=== PATIENT | male | born 1980 | race Two or more races ===

== ENCOUNTER 2022-07-12 14:25 | Inpatient (IN) | payer MEDICAID ==
[~2022-07-12] VITALS: Ht 162.6 cm; Wt 75.7 kg
[~2022-07-12 14:25] MED LIST: ETOMIDATE 20 MG/10 ML VIAL ONE; LIDOCAINE-MPF 2% 5 ML VIAL ONE; METOCLOPRAMIDE HCL 10 MG/2 ML VIAL ONE; ONDANSETRON 4 MG/2 ML VIAL ONE; SUCCINYLCHOLINE CHLORIDE 200 MG/10 ML VIAL ONE
[2022-07-12] MEDS ORDERED: IV NORMAL SALINE 1000 ML BAG IV ONE (14:30)
[2022-07-12 15:00] LABS: MEAN CORPUSCULAR HEMOGLOBIN 26.4 uug (24.7-32.8)
[2022-07-12] MEDS ORDERED: PANTOPRAZOLE SODIUM IV 40 MG in IV DEXTROSE 5% 100 ML IV ONE (15:00)
[2022-07-12] MEDS ORDERED: CEFTRIAXONE 1 G in IV DEXTROSE 5% 50 ML IV ONE (15:00)
[2022-07-12] MEDS ORDERED: PANTOPRAZOLE SODIUM IV 80 MG in IV DEXTROSE 5% 500 ML IV ONE (15:00)
[2022-07-12] MEDS ORDERED: PANTOPRAZOLE SODIUM 40 MG VIAL ONE (15:08)
[2022-07-12] MEDS ORDERED: CEFTRIAXONE /D5W 50ML IVPB **ER PYXIS IV ONE (15:08)
[2022-07-12] MEDS ORDERED: OCTREOTIDE ACETATE 500 MCG/1 ML VIAL ONE (15:10)
[2022-07-12] MEDS ORDERED: OCTREOTIDE ACETATE 100 MCG/1 MLVIAL IV ONE (15:15)
[2022-07-12] MEDS ORDERED: OCTREOTIDE ACETATE 50 MCG/1 ML ML ONE (15:18)
--- NOTE | 2022-07-12 15:25 | NUR ---
Started PRBC infusion.
[2022-07-12 15:29] LABS: PLATELET COUNT (AUTO) 149 K/uL (152-348)
[2022-07-12 15:34] LABS: BILIRUBIN,DIRECT 0.9 mg/dL (0.0-0.2); BILIRUBIN,TOTAL 1.7 mg/dL (0.2-1.0); CREATININE 1.1 mg/dL (0.6-1.3); TOTAL PROTEIN, SERUM 4.3 g/dL (6.4-8.2)
[2022-07-12] MEDS ORDERED: PIPERACILLIN SODIUM/TAZOBACTAM 3.375 G in IV DEXTROSE 5% 50 ML IV ONE (15:45)
[2022-07-12] MEDS ORDERED: VANCOMYCIN IV 1,000 MG in IV DEXTROSE 5% 250 ML IV ONE (15:45)
--- NOTE | 2022-07-12 16:00 | NUR ---
Pt out of ER for CT scan.
[2022-07-12 16:33] LABS: BAND % (MANUAL) 3 % (0-10); LYMPHOCYTES % (MANUAL) 8 % (20-40); MONOCYTES % (MANUAL) 7 % (2-10); MYELOCYTES % 1 % (0-0); NEUTROPHILS % (MANUAL) 81 % (42-75)
--- NOTE | 2022-07-12 16:33 | NUR ---
PICC line insertion Celeste FONTENOT at the bedside.
[2022-07-12] MEDS ORDERED: NOREPINEPHRINE BITARTRATE 4 MG/4 ML VIAL IV ONE (17:13)
--- NOTE | 2022-07-12 17:20 | NUR ---
Started pt on Levophed at rate of 0.5 mcg/kg.
--- NOTE | 2022-07-12 17:30 | NUR ---
Completed 1st unit of PRBC, No adverse reaction noted.
[2022-07-12] MEDS: NOREPINEPHRINE BITARTRATE 8 MG in IV NORMAL SALINE 242 ML IV PRN (17:31)
[2022-07-12] MEDS ORDERED: PIPERACILLIN/TAZOBACTAM/D5W 50 ML IV ONE ×2 (17:33→22:33)
[2022-07-12] MEDS ORDERED: VANCOMYCIN IV 200 ML ONE (17:44)
--- NOTE | 2022-07-12 17:55 | NUR ---
Lower Levophed to 0.1 mcg/kg per Md order. SBP remaines above 100.
[2022-07-12] MEDS ORDERED: MORPHINE SULFATE 2 MG/1 ML DISP.SYRIN ONE (18:04)
--- NOTE | 2022-07-12 18:05 | NUR ---
Noted pt to be slightly typecnic at RR of 20, Dr Bowman notified and accessed by her, Reduce rate of PRBC to 60 ML/Hr.
[2022-07-12] MEDS ORDERED: DEXTROSE 50% 50 ML DISP.SYRIN ONE (18:24)
[2022-07-12] MEDS ORDERED: DEXTROSE 50% 50 ML DISP.SYRIN IV ONE (18:30)
[2022-07-12] MEDS ORDERED: MORPHINE SULFATE 2 MG/1 ML DISP.SYRIN IV ONE (18:30)
--- NOTE | 2022-07-12 18:37 | NUR ---
JON BELL spoke to Dr Gamez for CCU admit.
--- NOTE | 2022-07-12 19:25 | NUR ---
Increased Levophed to 0.2 mcg/kg for BP of 87/43. Handsoff report given to abrahan Pierce RN.
[2022-07-12 19:58] LABS: MEAN CORPUSCULAR HEMOGLOBIN 28.2 uug (23.8-33.4); MEAN CORPUSCULAR VOLUME 93.3 fL (73.0-96.2); PLATELET COUNT (AUTO) 104 K/uL (152-348)
[2022-07-12 20:07] LABS: NEUTROPHILS % (MANUAL) 0 % (42-75)
[2022-07-12] MEDS: OCTREOTIDE ACETATE DRIP 500 MCG in IV NORMAL SALINE 99 ML IV PRN ×2 (20:34→20:36)
[2022-07-12] MEDS ORDERED: MORPHINE SULFATE 2 MG/1 ML DISP.SYRIN IV PRN (20:45)
[2022-07-12] MEDS ORDERED: ONDANSETRON 4 MG/2 ML VIAL IV PRN (20:45)
[2022-07-12] MEDS: PANTOPRAZOLE SODIUM 40 MG VIAL IV SCH (21:00)
--- NOTE | 2022-07-12 22:10 | NUR ---
Started 1st unit of FFP as ordered by Dr Bowman. Patient tolertating infusion at this time.
[2022-07-12] MEDS: SODIUM BICARBONATE 8.4% 50 MEQ in IV D5/ 0.9% NACL 1,000 ML IV PRN (22:29)
[2022-07-12] MEDS: PIPERACILLIN SODIUM/TAZOBACTAM 3.375 G in IV DEXTROSE 5% 50 ML IV SCH (22:37)
--- NOTE | 2022-07-12 23:20 | NUR ---
FFP completed, with no reaction noted.
[2022-07-13] VITALS (16 sets, daily range): BP systolic 71–151; BP diastolic 42–81
[2022-07-13] MEDS: VANCOMYCIN IV 1,000 MG in IV DEXTROSE 5% 250 ML IV SCH ×3 (02:00→22:14)
--- NOTE | 2022-07-13 03:00 | NUR ---
Patient tolerated 3rd unit of PRBC with no blood transfusion reaction noted.
[2022-07-13 04:05] LABS: *BILIRUBIN,URIN NEGATIVE (NEGATIVE); *COLOR,URINE YELLOW (YELLOW); *KETONES,URINE NEGATIVE (NEGATIVE); *UROBILINOGEN,URINE 0.2 E.U./dl (NORMAL); LEUKOCYTE ESTERASE ,URINE NEGATIVE (NEGATIVE); NITRITE, URINE NEGATIVE (NEGATIVE); UGLUCOSE NEGATIVE (NEGATIVE)
[2022-07-13 04:17] LABS: *BLOOD, URINE TRACE INTACT (NEGATIVE)
[2022-07-13] MEDS: PIPERACILLIN SODIUM/TAZOBACTAM 3.375 G in IV DEXTROSE 5% 50 ML IV SCH ×4 (04:17→22:13)
[2022-07-13] MEDS ORDERED: FENTANYL CITRATE 100 MCG/2 ML AMPUL ONE ×3 (04:33→07:21)
[2022-07-13] MEDS ORDERED: SUCCINYLCHOLINE CHLORIDE 200 MG/10 ML VIAL ONE (04:34)
[2022-07-13] MEDS ORDERED: FAMOTIDINE. 20 MG/2 ML VIAL IV ONE (04:34)
--- NOTE | 2022-07-13 04:37 | NUR ---
OR nurse here to cook pickled meat patient. Gave SBAR report to Alise OR nurse.
--- NOTE | 2022-07-13 04:38 | NUR ---
Patient went down to OR via gurny with OR nurse taking patient.
[2022-07-13 06:11] LABS: *CLARITY,URINE EH007534 (CLEAR)
[2022-07-13 06:14] LABS: BACTERIA,URINE FEW /HPF (NONE SEEN); RBC,URINE 0-3 /HPF (0-3); SQUAMOUS EPITHELIAL CELL,UR FEW /HPF (NONE SEEN); WBC,URINE 0-3 /HPF (0-3)
[2022-07-13 06:56] LABS: HEMATOCRIT 25.6 % (36.7-47.1); MEAN CORPUSCULAR HEMOGLOBIN 29.1 uug (23.8-33.4); MEAN CORPUSCULAR VOLUME 92.8 fL (73.0-96.2); PLATELET COUNT (AUTO) 75 K/uL (152-348)
[2022-07-13 07:28] LABS: IRON, SERUM 27 ug/dL (50-175)
[2022-07-13 07:53] LABS: ALANINE AMINOTRANSFERASE 1510 U/L (16-63); ALKALINE PHOSPHATASE 147 U/L (50-136); BILIRUBIN,TOTAL 3.6 mg/dL (0.2-1.0); CARBON DIOXIDE 16 mmol/L (21-32); CHLORIDE 108 mmol/L (98-107); CREATININE 1.1 mg/dL (0.6-1.3); GLUCOSE 116 mg/dL (74-106); MAGNESIUM 1.8 mg/dL (1.8-2.4); PHOSPHOROUS 4.6 mg/dL (2.5-4.9); POTASSIUM 4.7 mmol/L (3.5-5.1); UREA NITROGEN, BLOOD 29 mg/dL (7-18)
--- NOTE | 2022-07-13 08:25 | NUR ---
Received report from Gallo Deutsch RN. Patient came in from PACU S/P EGD via gurney with monitoring and evaluation advisor. Patient is sedated, on propofol drip @ 35mcg/kg/min, ET 8, LL25, with vent settings of AC 12, TV 500, PEEP 0, FiO2 100%, O2 sat 100%. Patient is aggressive and agitated, on bilateral soft wrist restraints, CMS intact and patent. Hooked to monitor with stable vital signs. Will continue to monitor.
[2022-07-13] MEDS ORDERED: PANTOPRAZOLE SODIUM 40 MG VIAL ONE ×2 (09:26→21:57)
[2022-07-13 09:29] LABS: ASPARTATE AMINOTRANSFERASE 5875 U/L (15-37)
--- NOTE | 2022-07-13 09:30 | NUR ---
Per Dr. Blackburn to insert NG tube tomorrow.
[2022-07-13] MEDS: PROPOFOL 100 ML IV PRN ×3 (09:45→19:37)
[2022-07-13] MEDS: PANTOPRAZOLE SODIUM 40 MG VIAL IV SCH ×2 (09:54→22:13)
[2022-07-13] MEDS ORDERED: PROPOFOL 100 ML ONE ×3 (10:20→19:34)
--- NOTE | 2022-07-13 10:25 | NUR ---
Patient is still agitated and combative. Per Dr. Blackburn, to give Ativan 1mg IV Q6 PRN and ok to titrate FiO2 to keep above 94%.
--- NOTE | 2022-07-13 10:48 | NUR ---
FiO2 titrated to 70% by RT Jayden, tolerating well. O2 sat 100%. Will continue to monitor,
--- NOTE | 2022-07-13 11:15 | NUR ---
Called Christopher Rodriguez (brother) via telephone for consent of right thoracentesis, with 2 RN witness, Consent placed to chart.
[2022-07-13] MEDS ORDERED: LACTULOSE ENEMA PR ONE ×2 (11:30)
[2022-07-13] MEDS ORDERED: LORAZEPAM 2 MG/1 ML VIAL ONE (11:53)
[2022-07-13] MEDS: LORAZEPAM 2 MG/1 ML VIAL IV PRN (11:59)
--- NOTE | 2022-07-13 15:15 | NUR ---
Dr Nielsen at bedside, report given. Addendum: 07/13/22 at 1613 by Estefania Hood RN Per farideh Pascual to increase Propofol rate upto 100mcg/kg/min.
--- NOTE | 2022-07-13 15:28 | NUR ---
AM care done c/o PATRICE Cisneros and student nurse Anne Marie. Patient noted to have liquid, dark, bloody stool.
--- NOTE | 2022-07-13 15:50 | NUR ---
ABG results relayed to Dr Nielsen. Per Dr. Nielsen, to increase RR to 14. Notified RT Jayden.
[2022-07-13 16:06] LABS: ABG BASE EXCESS -6.7 mmol/L; ABG HCO3 18.8 mmol/L; ABG PCO2 37.5 mmHg (35.0-45.0); ABG PH 7.318 (7.350-7.450); ABG PO2 89.5 mmHg (75.0-100.0); ABG SITE RIGHT RADIAL; ABG TOTAL HEMOGLOBIN 6.8 G/dL (13.5-18.0); COHb 0.1 % (0.5-1.5); MetHb 1.1 % (0.0-1.5); O2Hb 94.4 % (94.0-97.0); VENT MODE VENT - A/C; VT, ABG 500 mL
--- NOTE | 2022-07-13 16:41 | NUR ---
RT Jayden changed RR 12 to 14. Will continue to monitor closely.
--- NOTE | 2022-07-13 18:30 | NUR ---
PM care done c/o PATRICE Cisneros and student nurse Anne Marie. Patient still noted to have liquid, dark, bloody stool.
--- NOTE | 2022-07-13 19:27 | NUR ---
Endorsed to CORIE Goodrich for continuity of care. Addendum: 07/13/22 at 1927 by Estefania Hood RN Wrong documentation.
--- NOTE | 2022-07-13 19:39 | NUR ---
Endorsed to CORIE Venegas for continuity of care.
[2022-07-13] MEDS ORDERED: PHYTONADIONE 10 MG/1 ML AMPUL SQ ONE (20:15)
[2022-07-13] MEDS ORDERED: PHYTONADIONE 10 MG/1 ML AMPUL ONE (22:10)
[2022-07-13] MEDS: SODIUM BICARBONATE 8.4% 50 MEQ in IV D5/ 0.9% NACL 1,000 ML IV PRN (22:12)
[2022-07-14] VITALS (29 sets, daily range): BP systolic 89–127; BP diastolic 39–67
[2022-07-14] MEDS ORDERED: PROPOFOL 100 ML ONE ×6 (00:40→23:53)
[2022-07-14] MEDS: PROPOFOL 100 ML IV PRN ×5 (01:02→21:51)
[2022-07-14] MEDS ORDERED: NOREPINEPHRINE BITARTRATE 4 MG/4 ML VIAL IV ONE (02:53)
[2022-07-14] MEDS: NOREPINEPHRINE BITARTRATE 8 MG in IV NORMAL SALINE 242 ML IV PRN (03:15)
[2022-07-14] MEDS: PIPERACILLIN SODIUM/TAZOBACTAM 3.375 G in IV DEXTROSE 5% 50 ML IV SCH (03:42)
[2022-07-14] MEDS: VANCOMYCIN IV 1,000 MG in IV DEXTROSE 5% 250 ML IV SCH ×2 (04:45→14:17)
[2022-07-14 06:09] LABS: MEAN CORPUSCULAR HEMOGLOBIN 29.6 uug (23.8-33.4); MEAN CORPUSCULAR VOLUME 88.9 fL (73.0-96.2)
[2022-07-14 06:19] LABS: HEMATOCRIT 20.3 % (36.7-47.1); PLATELET COUNT (AUTO) 35 K/uL (152-348)
[2022-07-14 06:40] LABS: BILIRUBIN,DIRECT 2.5 mg/dL (0.0-0.2); BILIRUBIN,TOTAL 3.7 mg/dL (0.2-1.0); CREATININE 1.1 mg/dL (0.6-1.3); MAGNESIUM 1.9 mg/dL (1.8-2.4); PHOSPHOROUS 2.4 mg/dL (2.5-4.9); POTASSIUM 3.9 mmol/L (3.5-5.1); TOTAL PROTEIN, SERUM 4.3 g/dL (6.4-8.2)
[2022-07-14 06:41] LABS: BAND % (MANUAL) 2 % (0-10); BASOPHILS % (MANUAL) 0 % (0-2); EOSINOPHILS % (MANUAL) 0 % (0-8); LYMPHOCYTES % (MANUAL) 9 % (20-40); MONOCYTES % (MANUAL) 4 % (2-10); NEUTROPHILS % (MANUAL) 85 % (42-75)
[2022-07-14 08:32] LABS: ABG BASE EXCESS -2.5 mmol/L; ABG HCO3 21.4 mmol/L; ABG PCO2 32.5 mmHg (35.0-45.0); ABG PH 7.437 (7.350-7.450); ABG PO2 115.8 mmHg (75.0-100.0); ABG SITE RIGHT RADIAL; ABG TOTAL HEMOGLOBIN 6.9 G/dL (13.5-18.0); COHb 0.2 % (0.5-1.5); MetHb 1.3 % (0.0-1.5); O2Hb 96.3 % (94.0-97.0); VENT MODE VENT - A/C; VT, ABG 500 mL
[2022-07-14] MEDS ORDERED: PANTOPRAZOLE SODIUM 40 MG VIAL ONE ×2 (08:44→21:25)
[2022-07-14] MEDS: PANTOPRAZOLE SODIUM 40 MG VIAL IV SCH ×2 (08:58→21:30)
[2022-07-14] MEDS: SODIUM BICARBONATE 8.4% 50 MEQ in IV D5/ 0.9% NACL 1,000 ML IV PRN (09:05)
--- NOTE | 2022-07-14 10:48 | NUR ---
Updated warehouse delivery manager of Labs Plts, Hgb, and INR (see recent labs). PCP is in house and is aware of large red bowel movement and recent labs. Receiving PRBC transfusion as ordered tolerating well no reactions.
[2022-07-14 10:49] LABS: NEUTROPHILS % (MANUAL) 0 % (42-75)
[2022-07-14] MEDS ORDERED: PIPERACILLIN SODIUM/TAZOBACTAM 3.375 G in IV DEXTROSE 5% 100 ML IV SCH (12:00)
[2022-07-14] MEDS ORDERED: diphenhydrAMINE 50 MG/1 ML VIAL IV ONE (12:30)
[2022-07-14] MEDS ORDERED: diphenhydrAMINE 50 MG/1 ML VIAL IV PRN (13:00)
--- NOTE | 2022-07-14 13:02 | NUR ---
Thoracentesis on hold do to plt and coags not w/in normal limits.
[2022-07-14 13:19] LABS: MEAN CORPUSCULAR HEMOGLOBIN 29.9 uug (23.8-33.4); MEAN CORPUSCULAR VOLUME 88.2 fL (73.0-96.2)
[2022-07-14 13:28] LABS: HEMATOCRIT 20.7 % (36.7-47.1); PLATELET COUNT (AUTO) 26 K/uL (152-348)
[2022-07-14 13:37] LABS: THYROID STIMULATING HORMONE 0.763 mIU/mL (0.358-3.740)
[2022-07-14 13:41] LABS: *RHEUMATOID FACTOR SCREEN NEGATIVE (NEGATIVE)
[2022-07-14] MEDS ORDERED: diphenhydrAMINE 25 MG/10 ML UDC ONE (14:20)
[2022-07-14] MEDS ORDERED: diphenhydrAMINE 50 MG/1 ML VIAL ONE (14:21)
[2022-07-14] MEDS: IV D5/ 0.9% NACL 1,000 ML IV PRN (14:47)
--- NOTE | 2022-07-14 15:07 | NUR ---
2nd unit of PRBCS infusing and tolerating well no reactions.l
[2022-07-14] MEDS ORDERED: SODIUM PHOSPHATE MM 15 MMOL in IV NORMAL SALINE 250 ML IV ONE (16:30)
[2022-07-14 20:33] LABS: BAND % (MANUAL) 4 % (0-10); BASOPHILS % (MANUAL) 0 % (0-2); EOSINOPHILS % (MANUAL) 1 % (0-8); LYMPHOCYTES % (MANUAL) 9 % (20-40); MONOCYTES % (MANUAL) 5 % (2-10); NEUTROPHILS % (MANUAL) 81 % (42-75)
[2022-07-14] MEDS ORDERED: MEROPENEM 500MG/NS 50ML PB ***ER PYXIS ONLY IV ONE (20:57)
--- NOTE | 2022-07-14 21:00 | NUR ---
call put out to regarding rectal tube. awaiting callback.
[2022-07-14 21:08] LABS: MEAN CORPUSCULAR VOLUME 88.7 fL (73.0-96.2)
[2022-07-14 21:10] LABS: HEMATOCRIT 21.9 % (36.7-47.1); MEAN CORPUSCULAR HEMOGLOBIN 31.8 uug (23.8-33.4)
[2022-07-14] MEDS: MEROPENEM 1 G in IV NORMAL SALINE 100 ML IV SCH (21:10)
[2022-07-14 21:12] LABS: PLATELET COUNT (AUTO) 24 K/uL (152-348)
[2022-07-14 21:28] LABS: NEUTROPHILS % (MANUAL) 0 % (42-75)
--- NOTE | 2022-07-14 22:45 | NUR ---
Started plt infusion. t 97.6 p 82 bp 99/45
--- NOTE | 2022-07-14 23:34 | NUR ---
plt transfusion finished plasma transfusion began at 2330 t 97.6 p 87 103/49
[2022-07-15] VITALS (38 sets, daily range): BP systolic 15–122; BP diastolic 40–87
--- NOTE | 2022-07-15 | NUR ---
plt and plasma infusion both completed. pt no longer hypotensive. prbc infusion held as it doesn't meet transfusion requirements. .
[2022-07-15] MEDS: PROPOFOL 100 ML IV PRN ×5 (01:18→21:45)
[2022-07-15] MEDS: MEROPENEM 1 G in IV NORMAL SALINE 100 ML IV SCH ×3 (03:53→21:48)
[2022-07-15 04:22] LABS: MEAN CORPUSCULAR HEMOGLOBIN 30.2 uug (23.8-33.4)
[2022-07-15 04:23] LABS: HEMATOCRIT 23.2 % (36.7-47.1); MEAN CORPUSCULAR VOLUME 89.4 fL (73.0-96.2)
[2022-07-15 04:39] LABS: PLATELET COUNT (AUTO) 27 K/uL (152-348)
[2022-07-15 04:41] LABS: BILIRUBIN,DIRECT 3.8 mg/dL (0.0-0.2); BILIRUBIN,TOTAL 5.1 mg/dL (0.2-1.0); CREATININE 0.8 mg/dL (0.6-1.3); MAGNESIUM 1.9 mg/dL (1.8-2.4); PHOSPHOROUS 2.2 mg/dL (2.5-4.9); POTASSIUM 3.4 mmol/L (3.5-5.1); TOTAL PROTEIN, SERUM 4.6 g/dL (6.4-8.2)
--- NOTE | 2022-07-15 04:43 | NUR ---
Critical received from lab: plts 27(24). platelt levels trending up after platelet infusion.
[2022-07-15] MEDS: IV D5/ 0.9% NACL 1,000 ML IV PRN (04:47)
--- NOTE | 2022-07-15 05:12 | NUR ---
Lab called informing that the platelets will arrive in 4-6 hours.
--- NOTE | 2022-07-15 05:15 | NUR ---
Placed call to amilcar regarding electrolyte levels needing replacement. Awaiting callback.
[2022-07-15 05:16] LABS: ABG HCO3 21.7 mmol/L; ABG PCO2 37.2 mmHg (35.0-45.0); ABG PH 7.384 (7.350-7.450); ABG PO2 113.9 mmHg (75.0-100.0); ABG SITE RIGHT RADIAL; ABG TOTAL HEMOGLOBIN 9.5 G/dL (13.5-18.0); COHb 0.3 % (0.5-1.5); MetHb 0.5 % (0.0-1.5); O2Hb 97.1 % (94.0-97.0); VENT MODE VENT - A/C; VT, ABG 500 mL
[2022-07-15 05:57] LABS: BAND % (MANUAL) 2 % (0-10); BASOPHILS % (MANUAL) 0 % (0-2); EOSINOPHILS % (MANUAL) 0 % (0-8); LYMPHOCYTES % (MANUAL) 6 % (20-40); MONOCYTES % (MANUAL) 10 % (2-10); NEUTROPHILS % (MANUAL) 82 % (42-75)
--- NOTE | 2022-07-15 06:15 | NUR ---
pt's map has remained above 65 after platlet and plasma transfusion. pt's temp was at 97.6 and warming blanket applied and taken off when pt's temp reached 98F. Blood bank informed that platelets would take 4-6 hours to reach the hospital. placed a call regarding pt's electrolyte levels and awaiting callback from the
[2022-07-15] MEDS ORDERED: PROPOFOL 100 ML ONE ×4 (06:19→20:25)
[2022-07-15 07:07] LABS: *IMMUNOGLOBULIN G, SERUM 947 mg/dL (603-1613)
--- NOTE | 2022-07-15 08:00 | NUR ---
Pt. report received from William FONTENOT. Pt. received in bed, Intubated and sedated on propofol. Initial assessment rendered. Please see flowsheet. Bilateral wrist restraints intact.
[2022-07-15 08:06] LABS: HEPATITIS B SURFACE AG Negative (Negative)
--- NOTE | 2022-07-15 09:38 | NUR ---
RT in for mouth care and vent check.
[2022-07-15] MEDS ORDERED: PANTOPRAZOLE SODIUM 40 MG VIAL ONE ×2 (10:23→22:35)
[2022-07-15] MEDS: PANTOPRAZOLE SODIUM 40 MG VIAL IV SCH ×2 (10:28→22:37)
[2022-07-15] MEDS ORDERED: POTASSIUM CHLORIDE 50 ML ONE ×2 (10:48→13:00)
[2022-07-15] MEDS ORDERED: POTASSIUM PHOSPHATE MM 7.5 MMOL in IV NORMAL SALINE 97.5 ML IV ONE (11:00)
[2022-07-15] MEDS ORDERED: diphenhydrAMINE 50 MG/1 ML VIAL IV ONE (11:30)
[2022-07-15] MEDS ORDERED: ACETAMINOPHEN 325 MG TABLET PO ONE (11:30)
[2022-07-15] MEDS: POTASSIUM CHLORIDE 50 ML IV SCH ×2 (11:55→13:06)
[2022-07-15 15:06] LABS: ALPHA-1-GLOBULIN 0.2 g/dL (0.0-0.4); ALPHA-2-GLOBULIN 0.2 g/dL (0.4-1.0); BETA GLOBULIN 0.6 g/dL (0.7-1.3); M-SPIKE Not Observed g/dL (Not Observed)
--- NOTE | 2022-07-15 16:30 | NUR ---
16 F luna cath placed to patient withoiut incident. per Dr Akhil Gamez order. NO bleeding upon insertion. Pt. monitored for acute distress. 325cc dk abhi urine obtained upon insertion.
[2022-07-15] MEDS: MUPIROCIN 2% OINT 22 GM TUBE NS SCH ×2 (16:33→21:49)
[2022-07-15] MEDS: SOD FERRIC GLUC COMPLX/SUCROSE 125 MG in IV NORMAL SALINE 100 ML IV SCH (16:36)
--- NOTE | 2022-07-15 17:10 | NUR ---
Pt remains intubated on cmv, Fio2 titrated to 40% today. Spo2 and respirations wnl. Ett repositioned Q2. Ett/oral sxn prn. No resp. distress noted during shift. Will continue to monitor.
[2022-07-15 19:15] LABS: HEMATOCRIT 22.4 % (36.7-47.1); MEAN CORPUSCULAR HEMOGLOBIN 29.5 uug (23.8-33.4); MEAN CORPUSCULAR VOLUME 89.1 fL (73.0-96.2)
[2022-07-15 19:28] LABS: PLATELET COUNT (AUTO) 32 K/uL (152-348)
--- NOTE | 2022-07-15 20:00 | NUR ---
Pt. remains sedated and restrained bilat wrist for his safety. Dipravan at 50 mcgs as per flow sheet. Q 15 min VS documented on flowsheet on Pt. chart. Endorsed injury free to oncoming shift CORIE GABRIEL.
--- NOTE | 2022-07-15 21:37 | NUR ---
Pt received sedated on Propfol @ 50 mcg/kg/ min Pupills equal anfd reactive to light. B/l wrist restraints in place. As per day burse report py=t hgb ahas drtopped and pt was seen by Solids Control Technician. Will review orders. VS WNL.
--- NOTE | 2022-07-15 22:30 | NUR ---
As per mlab, pt was retyped and cross. New ordere is needed to prepare blood for transfusion. call center associate paged.
--- NOTE | 2022-07-15 23:42 | NUR ---
Obtained ordere given by MISSY Rankin to transfuse 1 unit PRBC for hgb 7.4. patient's BP unstable on D5NS @ 75 CC/HR Lab notified of new order to transfusee
[2022-07-16] VITALS (27 sets, daily range): BP systolic 91–131; BP diastolic 38–88
[2022-07-16] MEDS ORDERED: PROPOFOL 100 ML ONE ×6 (00:20→21:34)
[2022-07-16] MEDS: PROPOFOL 100 ML IV PRN ×7 (00:38→21:30)
[2022-07-16] MEDS ORDERED: ACETAMINOPHEN 325 MG SUPP ONE (02:30)
[2022-07-16] MEDS ORDERED: diphenhydrAMINE 50 MG/1 ML VIAL ONE (02:30)
[2022-07-16] MEDS ORDERED: ACETAMINOPHEN 650 MG SUPP.RECT RC PRN (02:45)
--- NOTE | 2022-07-16 03:50 | NUR ---
Blood transfusion initiated as ordered. Premedicated per MD. Pt consent is on chart. P0t is unable to verbalize understanding at intstruction on s/s of adverse reaction. Pt closely monitoreds per protocol. No adverse reaction noted.
--- NOTE | 2022-07-16 04:00 | NUR ---
Pt reassessed. Blood transfusion in progress. No blood transfusion reaction noted. Pt is sedate Propofol @ 50 mcg/kg/miin progress. IVV held per protocol during blood tansfusion. Aldridge cath intact and patent. Urine tea color. B/l wrist restraints in place. IV site WNL
--- NOTE | 2022-07-16 04:10 | NUR ---
PATIENT ON CONT RIVERA VENT WITH 8.0 ET/TUBE IN PLACE AND SECURED WITH ANCHOR FAST, ROTATE Q2 HOURS, PT IS SEDATED ON DIPRIVAN, SEMI WAKES UP AT TIMES, SLIGHTLY PINKISH TINGE SECRETIONS, AND SUCTION MOUTH WITH YANKAUER, CURRENT VENT SETTINGS, A/C 14, VT 500ML, NO PEEP , FIO2 @ 40%, ABG BEFORE 0600. Tera CALLAHAN RCP Addendum: 07/16/22 at 0413 by JONH CALLAHAN RT Amended: Links added.
--- NOTE | 2022-07-16 04:15 | NUR ---
Pt is tolerating blood transfusion. No adverse reaction. VS stable.
[2022-07-16] MEDS: MEROPENEM 1 G in IV NORMAL SALINE 100 ML IV SCH ×3 (04:37→20:00)
[2022-07-16 05:23] LABS: BAND % (MANUAL) 4 % (0-10); BASOPHILS % (MANUAL) 0 % (0-2); EOSINOPHILS % (MANUAL) 2 % (0-8); LYMPHOCYTES % (MANUAL) 9 % (20-40); MONOCYTES % (MANUAL) 14 % (2-10); NEUTROPHILS % (MANUAL) 71 % (42-75)
[2022-07-16 06:04] LABS: ABG BASE EXCESS -2.8 mmol/L; ABG PCO2 38.1 mmHg (35.0-45.0); ABG PH 7.379 (7.350-7.450); ABG PO2 54.4 mmHg (75.0-100.0); ABG SITE RIGHT RADIAL; ABG TOTAL HEMOGLOBIN 8.7 G/dL (13.5-18.0); COHb 0.5 % (0.5-1.5); MetHb 0.3 % (0.0-1.5); O2Hb 87.3 % (94.0-97.0); VENT MODE VENT - A/C; VT, ABG 500 mL
--- NOTE | 2022-07-16 06:25 | NUR ---
Blood transfusion completed. Pt without s/s of transfusion reaction. ABG completed by RT O2. PO2 54.4.
--- NOTE | 2022-07-16 07:00 | NUR ---
Pt is sedated. Arousable to novtious stimul
--- NOTE | 2022-07-16 08:00 | NUR ---
Report endorsed to am RN.AM lab to be drawn. and Rn was asked to followup. VS stable
[2022-07-16 09:00] LABS: HEMATOCRIT 22.2 % (36.7-47.1); MEAN CORPUSCULAR HEMOGLOBIN 32.2 uug (23.8-33.4); MEAN CORPUSCULAR VOLUME 88.9 fL (73.0-96.2)
[2022-07-16 09:14] LABS: BILIRUBIN,TOTAL 4.4 mg/dL (0.2-1.0); CREATININE 0.8 mg/dL (0.6-1.3); MAGNESIUM 1.8 mg/dL (1.8-2.4); PHOSPHOROUS 2.3 mg/dL (2.5-4.9); POTASSIUM 3.2 mmol/L (3.5-5.1); TOTAL PROTEIN, SERUM 4.2 g/dL (6.4-8.2)
[2022-07-16 09:29] LABS: NEUTROPHILS % (MANUAL) 0 % (42-75); PLATELET COUNT (AUTO) 38 K/uL (152-348)
[2022-07-16] MEDS ORDERED: PANTOPRAZOLE SODIUM 40 MG VIAL ONE ×2 (09:35→22:33)
[2022-07-16] MEDS: PANTOPRAZOLE SODIUM 40 MG VIAL IV SCH ×2 (09:39→21:00)
[2022-07-16] MEDS: MUPIROCIN 2% OINT 22 GM TUBE NS SCH ×2 (09:47→21:00)
[2022-07-16] MEDS ORDERED: POTASSIUM PHOSPHATE MM 15 MMOL in IV NORMAL SALINE 250 ML IV ONE (11:00)
[2022-07-16] MEDS: SOD FERRIC GLUC COMPLX/SUCROSE 125 MG in IV NORMAL SALINE 100 ML IV SCH (14:13)
--- NOTE | 2022-07-16 20:15 | NUR ---
Pt. remains critical stable and injury free. VSS .Endorsed to oncoming shift CORIE Godfrey.
[2022-07-17] VITALS (39 sets, daily range): BP systolic 84–117; BP diastolic 41–60
--- NOTE | 2022-07-17 00:21 | NUR ---
PATIENT ON CONT RIVERA VENT , WITH 8.0 ET/TUBE IN PLACE AND SECURED WITH ANCHOR FAST, NO VENT CHANGES MADE, ALL VENT ALARMS GOOD, PT ON CURRENT VENT SETTINGS, A/C 14, VT 500, 40%, PEEP 0, PT IS SEDATED ON DIPRIVAN , SAT 97% TO 98%, NO ABG ORDER FOR AM , SUCTION VERY LIGHT PINKISH TINGE SECRETIONS, CHANGE HME AND KINNEY. Tera CALLAHAN RCP Addendum: 07/17/22 at 0026 by JONH CALLAHAN RT Amended: Links added.
[2022-07-17] MEDS: PROPOFOL 100 ML IV PRN ×2 (01:02→04:05)
[2022-07-17] MEDS ORDERED: PROPOFOL 100 ML ONE ×2 (01:59→06:00)
[2022-07-17] MEDS: MEROPENEM 1 G in IV NORMAL SALINE 100 ML IV SCH ×3 (04:00→20:00)
[2022-07-17 05:23] LABS: HEMATOCRIT 23.5 % (36.7-47.1); MEAN CORPUSCULAR HEMOGLOBIN 31.1 uug (23.8-33.4)
[2022-07-17 05:25] LABS: PLATELET COUNT (AUTO) 39 K/uL (152-348)
[2022-07-17 05:26] LABS: BILIRUBIN,TOTAL 4.2 mg/dL (0.2-1.0); CREATININE 0.8 mg/dL (0.6-1.3); MAGNESIUM 1.8 mg/dL (1.8-2.4); PHOSPHOROUS 3.2 mg/dL (2.5-4.9); POTASSIUM 3.5 mmol/L (3.5-5.1); TOTAL PROTEIN, SERUM 4.2 g/dL (6.4-8.2)
--- NOTE | 2022-07-17 06:00 | NUR ---
--RECEIVED PT NON-RESPONSIVE ON THE VENT-VIA ETT. PT BRYANT WELL WITH POX OF 96-98%. PT HAS MOD AMT OF YELL-CARPIO THK SPUT/NS LAVAGE DONE. PT HAS BLOOD-TINGED ORAL SECRETIONS. PT BRYANT SX AND RTX WELL. HOB UP> 30 DEGREES. PT HAS BEEN AFEBRILE. PT HAS BEEN IN SR. VS HAVE BEEN STABLE. BP SLIGHT LOW OCCASS. WITH BP SYST. OF 86. ORAL CARE GIVEN. PT HAS IV I/P VIA LEFT ARM [id number]. PARTIAL BATH GIVEN. AM LABS DONE. NO GROSS S/S OF GI BLDG. F/C I/P-U/O IS 200CC VERY DARK MOLINA. PT ENDORSED TO NIC SRINIVASAN. GEN. COND HAS BEEN STABLE/GUARDED. TYLER FONTENOT
--- NOTE | 2022-07-17 06:00 | NUR ---
PT CONT. ON DIPRIVAN DRIP AT 45MCG(HAS BEEN REDUCED) TYLER RN
[2022-07-17] MEDS: MUPIROCIN 2% OINT 22 GM TUBE NS SCH ×2 (09:49→21:00)
[2022-07-17] MEDS ORDERED: PANTOPRAZOLE SODIUM 40 MG VIAL ONE ×2 (09:50→21:28)
[2022-07-17] MEDS: PANTOPRAZOLE SODIUM 40 MG VIAL IV SCH ×2 (09:51→21:47)
[2022-07-17] MEDS: FENTANYL CITRATE/PF 1,000 MCG in IV NORMAL SALINE 80 ML IV PRN (10:32)
[2022-07-17] MEDS: MIDAZOLAM HCL 50 MG in IV NORMAL SALINE 40 ML IV PRN (10:34)
--- NOTE | 2022-07-17 11:13 | NUR ---
Dr. chance in the unit, mom and dad visiting the patient, informed that he will attempt to call the son to update fully, he called however no answer so he will try again later. Son is spokes person due to language barrier with mom and dad.
[2022-07-17] MEDS ORDERED: ACETAMINOPHEN 325 MG TABLET PO ONE (11:45)
[2022-07-17] MEDS ORDERED: diphenhydrAMINE 50 MG/1 ML VIAL IV ONE (11:45)
[2022-07-17] MEDS ORDERED: LACTULOSE ENEMA PR ONE ×2 (12:00)
[2022-07-17] MEDS ORDERED: MAGNESIUM SULFATE/D5W 100 ML IV SCH (12:00)
[2022-07-17] MEDS ORDERED: MAGNESIUM SULFATE/D5W 100 ML ONE (13:59)
[2022-07-17] MEDS: SOD FERRIC GLUC COMPLX/SUCROSE 125 MG in IV NORMAL SALINE 100 ML IV SCH (14:01)
[2022-07-17] MEDS: IV D5/ 0.9% NACL 1,000 ML IV PRN (14:11)
[2022-07-17] MEDS ORDERED: diphenhydrAMINE 50 MG/1 ML VIAL ONE (15:00)
--- NOTE | 2022-07-17 16:00 | NUR ---
2 bags of cryo given as per ordered by hemotology order. fibrinogen less than 150. lactulose enema also given due to elevated ammonia level. decreased fi02 to 50% per RT titration. Peleg and Kevin, and hemotology rounded today. kevin to update family on status.
[2022-07-17 19:48] LABS: BAND % (MANUAL) 6 % (0-10); BASOPHILS % (MANUAL) 0 % (0-2); EOSINOPHILS % (MANUAL) 0 % (0-8); LYMPHOCYTES % (MANUAL) 16 % (20-40); MONOCYTES % (MANUAL) 12 % (2-10); NEUTROPHILS % (MANUAL) 66 % (42-75)
[2022-07-17] MEDS: REMEDY ESSENTIAL ZINC PASTE 113 GM TOP SCH (21:00)
[2022-07-18] VITALS (22 sets, daily range): BP systolic 92–136; BP diastolic 39–68
[2022-07-18] MEDS ORDERED: MIDAZOLAM HCL 5 MG/ML VIAL ONE (03:30)
[2022-07-18] MEDS: MIDAZOLAM HCL 50 MG in IV NORMAL SALINE 40 ML IV PRN (03:40)
--- NOTE | 2022-07-18 03:56 | NUR ---
PATIENT ON CONT RIVERA VENT WITH 8.0 ET/ TUBE IN PLACE AND SECURED WITH ANCHOR FAST, AND RE POSITION Q2 HOURS, PT IS SEDATED ON DIPRIVAN, DOES RESPONSE SLIGHTLY WHEN SUCTIONED, PROD. PINK TINGE SECRETIONS, CHANGE HME X 1 , ALL VENT ALARMS GOOD, CURRENT VENT SETTINGS, A/C 14, NO PEEP, VT 500ML, FIO2 @ 50%, MOSTLY WITH CONTROLLED VENTILATION, ABG @ 0800. D SINDY ENRIQUE Addendum: 07/18/22 at 0359 by JONH CALLAHAN RT Amended: Links added.
[2022-07-18] MEDS: MEROPENEM 1 G in IV NORMAL SALINE 100 ML IV SCH ×3 (04:04→21:37)
[2022-07-18 05:49] LABS: HEMATOCRIT 26.2 % (36.7-47.1); MEAN CORPUSCULAR HEMOGLOBIN 29.8 uug (23.8-33.4); MEAN CORPUSCULAR VOLUME 91.7 fL (73.0-96.2)
[2022-07-18 05:52] LABS: CARBON DIOXIDE 25 mmol/L (21-32); CHLORIDE 119 mmol/L (98-107); CREATININE 0.5 mg/dL (0.6-1.3); GLUCOSE 99 mg/dL (74-106); MAGNESIUM 1.9 mg/dL (1.8-2.4); PHOSPHOROUS 2.3 mg/dL (2.5-4.9); PLATELET COUNT (AUTO) 36 K/uL (152-348); UREA NITROGEN, BLOOD 12 mg/dL (7-18)
--- NOTE | 2022-07-18 06:00 | NUR ---
[id number] CONT. WITH STABLE VS. PT DOESN' FOLLOW SIMPLE COMMDS. PT OPENS EYES RARELY WITH NOXIOUS STIMILI. PT BRYANT VENT WELL WITH POX OF 95-99%. PT HAS OCCASS. THICK CARPIO SPUT.-BLOOD TINGED. IV I/P VIA LEFT ARM PICC-LINE. PT HAS F/C WITH DARK MOLINA U/O-200CC. PT IS ON VERSED AND FENTYNAL DRIPS FOR SEDATION. PT HAD LARGE DARK BROWN STOOL THIS AM. BATH AND LINEN CHANGE DONE. ORAL CARE GIVEN. AM LAB DONE. PT ENDORSED TO NIC LAWRENCE. TYLER FONTENOT
[2022-07-18 07:29] LABS: ABG BASE EXCESS -4.2 mmol/L; ABG PCO2 45.2 mmHg (35.0-45.0); ABG PH 7.306 (7.350-7.450); ABG PO2 65.9 mmHg (75.0-100.0); ABG SITE RIGHT RADIAL; ABG TOTAL HEMOGLOBIN 10.4 G/dL (13.5-18.0); COHb 0.6 % (0.5-1.5); MetHb 0.3 % (0.0-1.5); O2Hb 90.2 % (94.0-97.0); VENT MODE VENT - A/C14; VT, ABG 500 mL
[2022-07-18] MEDS: REMEDY ESSENTIAL ZINC PASTE 113 GM TOP SCH ×2 (09:00→21:00)
[2022-07-18] MEDS ORDERED: POTASSIUM PHOSPHATE MM 15 MMOL in IV NORMAL SALINE 250 ML IV ONE (09:00)
[2022-07-18] MEDS ORDERED: PANTOPRAZOLE SODIUM 40 MG VIAL ONE ×2 (09:40→21:41)
[2022-07-18] MEDS ORDERED: MUPIROCIN 2% OINT 22 GM TUBE ONE (09:41)
[2022-07-18] MEDS: PANTOPRAZOLE SODIUM 40 MG VIAL IV SCH ×2 (09:49→21:44)
[2022-07-18] MEDS: MUPIROCIN 2% OINT 22 GM TUBE NS SCH ×2 (09:51→21:38)
[2022-07-18 11:55] LABS: EOSINOPHILS % (MANUAL) 3 % (0-8); LYMPHOCYTES % (MANUAL) 5 % (20-40); MONOCYTES % (MANUAL) 5 % (2-10); NEUTROPHILS % (MANUAL) 87 % (42-75)
[2022-07-18] MEDS ORDERED: IV D5 1/2 NS 1000 ML 1,000 ML IV ONE (12:45)
[2022-07-18] MEDS: SOD FERRIC GLUC COMPLX/SUCROSE 125 MG in IV NORMAL SALINE 100 ML IV SCH (14:26)
[2022-07-18] MEDS: FENTANYL CITRATE/PF 1,000 MCG in IV NORMAL SALINE 80 ML IV PRN (17:44)
[2022-07-18 18:09] LABS: CREATININE 0.7 mg/dL (0.6-1.3); POTASSIUM 3.4 mmol/L (3.5-5.1)
--- NOTE | 2022-07-18 18:20 | NUR ---
Received received drowst in bed. Ppens eyes to noctious stimulus. Versed drip and Fentanyl drip ifusing, per protocol as ordered, by the [facility].. Please refer to the nursing flow record for flow rates VS staable. OETT L side of mouth to vent per RTT,Patient is relaxed and tolerating vent setting. Continuous cardiac and pulse oximetry in place. Please e refer to the nursing gloria record tor rhythm, rate and OSAT.Pt is NPO.Aldridge to gravity draining tea color urine. Eyes yellow, Skin jaundic. Generalized edema. non pitting. Will continue to manage problem and keep patient stble. Addendum: 07/19/22 at 1016 by REGISTRY [facility] RN8 RN note was timed tor 07/18/2020 at 1929 instead of 1820.
[2022-07-19] VITALS (22 sets, daily range): BP systolic 91–137; BP diastolic 43–71
[2022-07-19] MEDS ORDERED: IV D5/ 0.9% NACL 1,000 ML IV PRN ×2 (02:00→19:15)
[2022-07-19] MEDS: MIDAZOLAM HCL 50 MG in IV NORMAL SALINE 40 ML IV PRN (03:35)
[2022-07-19] MEDS: MEROPENEM 1 G in IV NORMAL SALINE 100 ML IV SCH ×3 (03:37→20:33)
[2022-07-19 05:23] LABS: HEMATOCRIT 26.2 % (36.7-47.1); MEAN CORPUSCULAR HEMOGLOBIN 29.9 uug (23.8-33.4); MEAN CORPUSCULAR VOLUME 93.6 fL (73.0-96.2)
[2022-07-19 05:31] LABS: PLATELET COUNT (AUTO) 40 K/uL (152-348)
[2022-07-19 05:33] LABS: BILIRUBIN,DIRECT 3.3 mg/dL (0.0-0.2); BILIRUBIN,TOTAL 4.8 mg/dL (0.2-1.0); MAGNESIUM 1.7 mg/dL (1.8-2.4); PHOSPHOROUS 2.3 mg/dL (2.5-4.9); TOTAL PROTEIN, SERUM 4.5 g/dL (6.4-8.2)
[2022-07-19 05:38] LABS: NEUTROPHILS % (MANUAL) 0 % (42-75)
[2022-07-19 05:39] LABS: CREATININE 0.7 mg/dL (0.6-1.3); POTASSIUM 3.5 mmol/L (3.5-5.1)
[2022-07-19 06:08] LABS: ABG HCO3 21.9 mmol/L; ABG PCO2 38.4 mmHg (35.0-45.0); ABG PH 7.374 (7.350-7.450); ABG PO2 68.2 mmHg (75.0-100.0); ABG SITE RIGHT RADIAL; ABG TOTAL HEMOGLOBIN 10.3 G/dL (13.5-18.0); COHb 0.7 % (0.5-1.5); MetHb 0.4 % (0.0-1.5); O2Hb 91.7 % (94.0-97.0); VENT MODE VENT - A/C; VT, ABG 500 mL
--- NOTE | 2022-07-19 07:00 | NUR ---
Patient is seated on versed at 7mg/hr. Fentanyl at 100 mcg.. vs sable. Report endorse to day nurse of same and Platelet of 40.
[2022-07-19] MEDS: REMEDY ESSENTIAL ZINC PASTE 113 GM TOP SCH ×2 (09:00→20:35)
[2022-07-19] MEDS: MUPIROCIN 2% OINT 22 GM TUBE NS SCH ×2 (09:00→20:34)
[2022-07-19] MEDS: PANTOPRAZOLE SODIUM 40 MG VIAL IV SCH ×2 (09:00→20:35)
--- NOTE | 2022-07-19 09:51 | NUR ---
0700 error pulse entered wrong not 17 was actually 89 bpm per monitor and palpitation,. [place] [address], warm and dry.
--- NOTE | 2022-07-19 10:16 | NUR ---
fAMILY VISITING. PT UNABLE TO U=NTERACT AN IS SEDATED.
[2022-07-19 10:37] LABS: CREATININE 0.8 mg/dL (0.6-1.3); POTASSIUM 3.5 mmol/L (3.5-5.1)
[2022-07-19] MEDS ORDERED: PANTOPRAZOLE SODIUM 40 MG VIAL ONE ×2 (11:04→20:37)
[2022-07-19] MEDS ORDERED: MAGNESIUM SULFATE/D5W 100 ML ONE (11:06)
[2022-07-19] MEDS: FENTANYL CITRATE/PF 1,000 MCG in IV NORMAL SALINE 80 ML IV PRN (11:16)
[2022-07-19] MEDS: MAGNESIUM SULFATE/D5W 100 ML IV SCH ×2 (11:24→11:46)
[2022-07-19] MEDS ORDERED: PHYTONADIONE 10 MG/1 ML AMPUL IV SCH (11:30)
[2022-07-19] MEDS ORDERED: PHYTONADIONE 10 MG/1 ML AMPUL ONE (12:02)
[2022-07-19] MEDS: PRECEDEX 400 MCG/100 ML BOTTLE 100 ML IV PRN (12:09)
[2022-07-19] MEDS ORDERED: TPN/PPN PER PHARMACY IV PRN (12:30)
[2022-07-19] MEDS ORDERED: DEXTROSE 50% 50 ML DISP.SYRIN IV PRN (14:15)
[2022-07-19] MEDS: SOD FERRIC GLUC COMPLX/SUCROSE 125 MG in IV NORMAL SALINE 100 ML IV SCH (14:54)
[2022-07-19] MEDS ORDERED: TPN BAG#1 IV SCH ×5 (15:00)
[2022-07-19] MEDS ORDERED: IV FAT EMULSIONS 20% 250 ML IV SCH (15:00)
[2022-07-19] MEDS: BLOOD SUGAR DIAGNOSTIC 1 EACH STRIP VI SCH ×2 (17:50→23:32)
[2022-07-19] MEDS ORDERED: TAMSULOSIN HCL 0.4 MG CAP.SR.24H ONE (18:31)
[2022-07-20] VITALS (38 sets, daily range): BP systolic 91–111; BP diastolic 40–56
[2022-07-20 05:01] LABS: HEMATOCRIT 26.2 % (36.7-47.1); MEAN CORPUSCULAR HEMOGLOBIN 30.4 uug (23.8-33.4)
[2022-07-20 05:07] LABS: PLATELET COUNT (AUTO) 37 K/uL (152-348)
[2022-07-20 05:12] LABS: CREATININE 0.8 mg/dL (0.6-1.3); MAGNESIUM 1.9 mg/dL (1.8-2.4); PHOSPHOROUS 3.3 mg/dL (2.5-4.9); POTASSIUM 3.2 mmol/L (3.5-5.1)
[2022-07-20 05:17] LABS: BAND % (MANUAL) 4 % (0-10); BASOPHILS % (MANUAL) 0 % (0-2); EOSINOPHILS % (MANUAL) 4 % (0-8); LYMPHOCYTES % (MANUAL) 10 % (20-40); MONOCYTES % (MANUAL) 6 % (2-10); NEUTROPHILS % (MANUAL) 76 % (42-75)
[2022-07-20] MEDS: BLOOD SUGAR DIAGNOSTIC 1 EACH STRIP VI SCH ×3 (05:57→18:16)
[2022-07-20] MEDS: FENTANYL CITRATE/PF 1,000 MCG in IV NORMAL SALINE 80 ML IV PRN ×2 (07:40→22:40)
[2022-07-20] MEDS: PRECEDEX 400 MCG/100 ML BOTTLE 100 ML IV PRN ×2 (07:46→17:30)
--- NOTE | 2022-07-20 09:29 | NUR ---
ordered platelets with blood bank. [facility]. platelets to come in 2 hrs ETA. Informed US tech. radiologist plan to continue procedure at 1400.
[2022-07-20] MEDS ORDERED: PANTOPRAZOLE SODIUM 40 MG VIAL ONE ×2 (09:32→21:13)
[2022-07-20] MEDS: MUPIROCIN 2% OINT 22 GM TUBE NS SCH ×2 (09:35→21:54)
[2022-07-20] MEDS: PANTOPRAZOLE SODIUM 40 MG VIAL IV SCH ×2 (09:35→21:54)
[2022-07-20] MEDS: REMEDY ESSENTIAL ZINC PASTE 113 GM TOP SCH ×2 (09:36→21:56)
[2022-07-20 12:07] LABS: *ANTI-SCLERODERMA-70 AB <0.2 AI (0.0-0.9); *SJOGREN'S ANTI-SS-A <0.2 AI (0.0-0.9); *SJOGREN'S ANTI-SS-B <0.2 AI (0.0-0.9); *SMITH ANTIBODIES <0.2 AI (0.0-0.9)
[2022-07-20] MEDS: MIDAZOLAM HCL 50 MG in IV NORMAL SALINE 40 ML IV PRN ×2 (12:10→12:11)
--- NOTE | 2022-07-20 13:50 | NUR ---
[place]ST[place] US tech at bedside and radiogist to do right side thoracentesis. 1475ml out of clear yellow fluid
[2022-07-20] MEDS ORDERED: TPN BAG #2 IV SCH ×4 (17:00)
[2022-07-20 17:09] LABS: HEMATOCRIT 28.1 % (36.7-47.1); MEAN CORPUSCULAR HEMOGLOBIN 30.2 uug (23.8-33.4); MEAN CORPUSCULAR VOLUME 94.6 fL (73.0-96.2)
--- NOTE | 2022-07-20 17:09 | NUR ---
Dr. Deng in the unit roundphani has not called MERARI yet. Informed him again number of contact. will call me back to obtain consent. Addendum: 07/20/22 at 1713 by CRAIG ARRIETA RN Error : incorrect patient charting
[2022-07-20 17:12] LABS: PLATELET COUNT (AUTO) 47 K/uL (152-348)
[2022-07-20 17:13] LABS: NEUTROPHILS % (MANUAL) 0 % (42-75)
[2022-07-20] MEDS ORDERED: ACETAMINOPHEN 325 MG TABLET PO PRN (19:00)
[2022-07-21] VITALS (24 sets, daily range): BP systolic 81–129; BP diastolic 30–75
--- NOTE | 2022-07-21 00:34 | NUR ---
PATIENT ON CONT RIVERA VENT WITH 8.0 ET/TUBE IN PLACE AND SECURED WITH ANCHOR FAST, ROTATE POSITION Q2 HOURS, SUCTIONED PINKISH TINGE SECRETIONS, CHANGE HME, ALL VENT ALARMS GOOD, NO VENT CHANGES MADE , PT ON CURRENT VENT SETTINGS, A/C 16, VT 500ML, PEEP5, 45%, PT IS SEDATED, CHANGE HME, AMBU BAG AT BEDSIDE.Tera CALLAHAN RCP Addendum: 07/21/22 at 0037 by JONH CALLAHAN RT Amended: Links added.
[2022-07-21] MEDS: BLOOD SUGAR DIAGNOSTIC 1 EACH STRIP VI SCH ×4 (02:30→17:06)
[2022-07-21] MEDS: PRECEDEX 400 MCG/100 ML BOTTLE 100 ML IV PRN (02:44)
--- NOTE | 2022-07-21 05:05 | NUR ---
CORRECTION FIO2 @ 50%,
[2022-07-21 06:00] LABS: ABG BASE EXCESS -2.6 mmol/L; ABG HCO3 20.9 mmol/L; ABG PCO2 31.9 mmHg (35.0-45.0); ABG PH 7.435 (7.350-7.450); ABG PO2 68.9 mmHg (75.0-100.0); ABG SITE LEFT RADIAL; ABG TOTAL HEMOGLOBIN 10.5 G/dL (13.5-18.0); COHb 0.4 % (0.5-1.5); MetHb 0.3 % (0.0-1.5); O2Hb 92.7 % (94.0-97.0); VENT MODE VENT - A/C; VT, ABG 500 mL
[2022-07-21 06:26] LABS: HEMATOCRIT 30.9 % (36.7-47.1); MEAN CORPUSCULAR VOLUME 94.6 fL (73.0-96.2)
[2022-07-21 06:30] LABS: CARBON DIOXIDE 27 mmol/L (21-32); CHLORIDE 117 mmol/L (98-107); CREATININE 0.6 mg/dL (0.6-1.3); GLUCOSE 124 mg/dL (74-106); MAGNESIUM 1.6 mg/dL (1.8-2.4); PHOSPHOROUS 3.7 mg/dL (2.5-4.9); POTASSIUM 3.7 mmol/L (3.5-5.1); UREA NITROGEN, BLOOD 20 mg/dL (7-18)
[2022-07-21 06:52] LABS: PLATELET COUNT (AUTO) 42 K/uL (152-348)
--- NOTE | 2022-07-21 07:30 | NUR ---
Received pt. on ventilator ETT 7.0 23LL A/C16, TV500 fo% FIO2 and PEEP+5. Saturation within desired limits. SBP in the low 90's On fentanyl running at 80mcg/kg.min and precedex at 0.7mcg/kg/min pt. opening eyes spontaneously slightly restless and retraction noted with oral care. cardia-helms pt. on sinus bradycardia. TPN running as ordered. Sacral area with decubitus. Will continue to monitor.
--- NOTE | 2022-07-21 07:30 | NUR ---
Pt. endorsed to oncoming CORIE Martinez. Pt. remains intubated and sedated. Injury free. A.M. labs noted. Monitored for acute distress.
[2022-07-21 07:36] LABS: BAND % (MANUAL) 1 % (0-10); LYMPHOCYTES % (MANUAL) 7 % (20-40); NEUTROPHILS % (MANUAL) 75 % (42-75)
[2022-07-21 07:37] LABS: EOSINOPHILS % (MANUAL) 6 % (0-8); MONOCYTES % (MANUAL) 11 % (2-10)
[2022-07-21] MEDS ORDERED: INSULIN REGULAR, HUMAN 300 UNIT/3 ML VIAL ONE (08:13)
[2022-07-21] MEDS: INSULIN REGULAR, HUMAN 300 UNIT/3 ML VIAL SQ PRN (08:18)
[2022-07-21] MEDS ORDERED: PANTOPRAZOLE SODIUM 40 MG VIAL ONE ×2 (08:22→21:26)
[2022-07-21] MEDS: PANTOPRAZOLE SODIUM 40 MG VIAL IV SCH ×2 (08:26→21:30)
[2022-07-21] MEDS: MUPIROCIN 2% OINT 22 GM TUBE NS SCH ×2 (08:27→21:00)
[2022-07-21] MEDS: REMEDY ESSENTIAL ZINC PASTE 113 GM TOP SCH ×2 (08:28→21:00)
--- NOTE | 2022-07-21 08:43 | NUR ---
Patient seen by attending Dr. Orourke and orders to give 500 NS fluid challenge bolus received. and implemented.
--- NOTE | 2022-07-21 09:05 | NUR ---
Pulmonary services, Dr. Miller at bedside report given orders for CPAP PSV 10 PEEP +5. X1 hour follow up by ABG. report results.
[2022-07-21] MEDS ORDERED: IV NORMAL SALINE 500 ML IV ONE (09:15)
--- NOTE | 2022-07-21 09:20 | NUR ---
CPAP trial started at this time RT. Pino at bedside. patient following commands and taking deep breaths. saturatin of 97%. RR 8-12. Sinus bradycardia.
--- NOTE | 2022-07-21 10:15 | NUR ---
A call from Christopher Elise pt's brother and Pt's mom MS. Marah Crooks and at this time I was requested to change the code status of Raman Crooks to DNR and DNI. Mr. White was explained that his brother was going through a CPAP trial and if ABG Ok pt. will get extubated. Mr. White requested to place pt. DNR/DNI if extubated. This call and request to change code status witness y RNSatinder . called and informed.
--- NOTE | 2022-07-21 10:30 | NUR ---
PT's brother Mr. White at bedside and He was updated at this time. He requested feeding for patient at this time informed that Pt. got just extubated and awaiting swallow eval.
[2022-07-21 10:34] LABS: ABG BASE EXCESS -3.4 mmol/L; ABG HCO3 22.2 mmol/L; ABG PCO2 42.3 mmHg (35.0-45.0); ABG PH 7.338 (7.350-7.450); ABG SITE LEFT RADIAL; ABG TOTAL HEMOGLOBIN 10.6 G/dL (13.5-18.0); COHb 0.3 % (0.5-1.5); MetHb 0.3 % (0.0-1.5); O2Hb 90.9 % (94.0-97.0); VENT MODE VENT - CPAP
--- NOTE | 2022-07-21 10:38 | NUR ---
A call back from Attending Dr. Orourke and orders to DNR/DNI received.
--- NOTE | 2022-07-21 10:43 | NUR ---
ABG results reported to complex care nurse Dr. Wiley and orders to extubate patient received. At 1050 time patient extubated and placed on NC with saturation of 93% placed on facemask 8L. with saturation still 93-95%.
--- NOTE | 2022-07-21 10:50 | NUR ---
Pt extubated per MD order. placed pt on 8L simple mask. SpO2 94% HR 70
--- NOTE | 2022-07-21 11:50 | NUR ---
At this time documenting the waiting of fentany bag pharmacyst Managei called to witness what was left in the bag since there is a discrepancy from what the system shows. She herself enter a note under my name on IV spreadsheet of 0900. time medication stop before extubation and the note says: 100 ml bag was started on 07/20 at 2240 by previous rn (registry). 75 mcg/mlx 5 hrs then 8 ml/hr x3 hrs until 7 am. bag volume should have been 61.5 ml at 0700. rate was increased to 10 ml/hr x2 hrs then dced. volume wasted 40 ml.This note written by pharmacist Managei.
[2022-07-21 13:07] LABS: ANTI-DNA(DS) AB, QN 1 IU/mL (0-9); IMMUNOGLOBULIN M, SERUM 75 mg/dL (20-172)
[2022-07-21] MEDS ORDERED: TPN BAG #3 IV SCH ×4 (14:00)
--- NOTE | 2022-07-21 15:30 | NUR ---
Pt's family to visit and at this time one of pt's brother at bedside, accidentally He was almost run over while moving pt. in bed B out of the room. He was asked by dayday POSADA to wait outside but he refused. I then asked him to wait outside while we move bed B outside the door, instead He stated "I'm not going out I'll wait here" right outside the door. He came to bedside. After transportation I open the curtains since this is an ICU patient, He the visitor with an aggressive tone told me "I need privacy" I attempted to explain the ICU monitoring status. but He did not want to listen. to prevent any altercations [employer]p [employer] called. His attitude toward the carpet finishing supervisor was different and then stated "she just open the curtains and I need privacy" [employer] explained him about ICU monitoring" Family dynamic change towards nurse after He went outside and talk to family. During shift family was updated over the phone and as they were coming to visit. And One of them was even inquiring about the status of the next door patient, I informed him of HIPPA violation instead.
[2022-07-22] VITALS (22 sets, daily range): BP systolic 103–138; BP diastolic 46–76
[2022-07-22] MEDS ORDERED: LORAZEPAM 2 MG/1 ML VIAL ONE ×3 (02:10→21:45)
[2022-07-22] MEDS: LORAZEPAM 2 MG/1 ML VIAL IV PRN ×2 (02:15→13:56)
[2022-07-22] MEDS ORDERED: DEXAMETHASONE SOD PHOSPHATE 10 MG INJ IV ONE (03:45)
[2022-07-22] MEDS ORDERED: DEXAMETHASONE SOD PHOSPHATE 10 MG INJ ONE (03:50)
[2022-07-22 04:48] LABS: HEMATOCRIT 27.4 % (36.7-47.1)
[2022-07-22 04:50] LABS: MEAN CORPUSCULAR HEMOGLOBIN 31.7 uug (23.8-33.4); MEAN CORPUSCULAR VOLUME 98.6 fL (73.0-96.2)
[2022-07-22 04:55] LABS: PLATELET COUNT (AUTO) 33 K/uL (152-348)
[2022-07-22 04:58] LABS: CREATININE 0.7 mg/dL (0.6-1.3); MAGNESIUM 2.3 mg/dL (1.8-2.4); PHOSPHOROUS 4.4 mg/dL (2.5-4.9); POTASSIUM 4.9 mmol/L (3.5-5.1)
[2022-07-22 05:39] LABS: NEUTROPHILS % (MANUAL) 71 % (42-75)
[2022-07-22 05:40] LABS: BAND % (MANUAL) 9 % (0-10); BASOPHILS % (MANUAL) 0 % (0-2); EOSINOPHILS % (MANUAL) 3 % (0-8); LYMPHOCYTES % (MANUAL) 11 % (20-40); MONOCYTES % (MANUAL) 6 % (2-10)
[2022-07-22 05:56] LABS: ABG BASE EXCESS 0.6 mmol/L; ABG HCO3 23.7 mmol/L; ABG PCO2 32.5 mmHg (35.0-45.0); ABG PO2 83.3 mmHg (75.0-100.0); ABG SITE RIGHT RADIAL; ABG TOTAL HEMOGLOBIN 10.3 G/dL (13.5-18.0); COHb 0.5 % (0.5-1.5); MetHb 0.3 % (0.0-1.5); O2Hb 95.2 % (94.0-97.0); VENT MODE P/MIST
[2022-07-22] MEDS: BLOOD SUGAR DIAGNOSTIC 1 EACH STRIP VI SCH ×4 (06:00→18:53)
--- NOTE | 2022-07-22 06:00 | NUR ---
--PT CONT. WITH STABLE VS. PT HAS BEEN AFEBRILE. PT HAS LEFT ARM [id number] I/P WITH TPN AT 60CC/HR.PT HAS BEEN IN SR-OCCASS. STACH.PT HAS BEEN A/OX2. PT ABLE TO SAY HIS NAME AND COMMUNICATE WITH FAMILLY MEMBERS ALTHOUGH PT IS CONFUSED AND ATTEMPTS TO PULL LINES AND TRIES TO GET OUT OF BED. CONTACTED FOR SOFT RESTRAINT ORDERS. PT ALSO BECAME VERY AGITATED. PT MED WITH ATIVAN 1MG SLOW IVP. PT BRYANT WELL AND SLEPT OFF AND ON. ----- PT ALSO HAD SIGNS OF STRIDER WITH WHEEZING. SHANTAL CLARK CONTACTED AND CHANGED O2 TO AEROSOL 50%. TORRIE ORELLANA CONTACTED AND ORD. DECADRON 6MG IVPX1. PT BRYANT WELL WITH POX OF 98%. PT SEEMS TO HAVE LESS STRIDER BY 0600. F/C I/P WITH 750CC OUT-MED. MOLINA. BATH AND LINEN CHANGE DONE. AM LAB DONE.PT ENDORSED TO DAY SHIFT CORIE MCCONNELL. TYLER FONTENOT
--- NOTE | 2022-07-22 07:30 | NUR ---
Received pt. on cool mist 8 liters saturation of 95-98%. On NSR rate in the 709-90's. and SBP within desired limits. Aldridge to gravity. TPN running at 60cc/hr. As reported on BUE soft restrains since 219, pt. remains slightly agitated. Picc line patent Will continue to monitor.
--- NOTE | 2022-07-22 08:00 | NUR ---
From 0800 patient receiving visitor who claimed to relatives acquaintances and friends.
[2022-07-22] MEDS ORDERED: PANTOPRAZOLE SODIUM 40 MG VIAL ONE ×2 (08:47→21:40)
[2022-07-22] MEDS: PANTOPRAZOLE SODIUM 40 MG VIAL IV SCH ×2 (08:48→21:41)
[2022-07-22] MEDS: REMEDY ESSENTIAL ZINC PASTE 113 GM TOP SCH ×2 (08:49→21:35)
--- NOTE | 2022-07-22 09:09 | NUR ---
Attending Dr. Orourke in the unit to see and examine pt. report given orders to continue monitor await for swallow evaluation and if ready pt. should be start with clear liquids advanced as tolerated. and if stable to call attending this afternoon for possible down-grade.
--- NOTE | 2022-07-22 09:35 | NUR ---
ID services Md at bedside to examine pt.
--- NOTE | 2022-07-22 11:09 | NUR ---
Since 0800 this morning multiple attempts to contact speech sheriff's sergeant to have an official "swallow eval" done pt. noted to be coughing with saliva and with oral care. Nursing supervisor metal placing called and notified. As stated "I'll follow up with order".
--- NOTE | 2022-07-22 11:23 | NUR ---
Dr. Lopez pulmonary services in the room to examine pt. at this time Ms. Crystal pt's mom at bedside and she was updated on care plan by Dr. Lopez. " explain pt's mom of the need to have a continuous draining due to increased accumulation of fluid" At this time pt's mom did not take a decision and stated She will speak to Christopher nathdest son.
--- NOTE | 2022-07-22 11:36 | NUR ---
At this time Christopher Ordoñez's brother called by his mother Ms. Crystal to discuss the insertion of drainage from pulmonary fluid. As stated by "Christopher they will have a family meeting and will have a answer for tomorrow 07/23/2022.
--- NOTE | 2022-07-22 11:46 | NUR ---
Speech therapist at bedside and after assessing pt. pt. failed swallow eval. Pt's brother at bedside and updated of care plan by Gabriela.
[2022-07-22] MEDS: INSULIN REGULAR, HUMAN 300 UNIT/3 ML VIAL SQ PRN (12:00)
[2022-07-22 12:12] LABS: *BILIRUBIN,URIN 3+ (NEGATIVE); *BLOOD, URINE 2+ (NEGATIVE); *CLARITY,URINE CLEAR (CLEAR); *COLOR,URINE YELLOW (YELLOW); *KETONES,URINE NEGATIVE (NEGATIVE); LEUKOCYTE ESTERASE ,URINE NEGATIVE (NEGATIVE); NITRITE, URINE NEGATIVE (NEGATIVE); UGLUCOSE NEGATIVE (NEGATIVE)
--- NOTE | 2022-07-22 13:50 | NUR ---
PT's mom at bedside pt. restless and demanding to have water attempting to remove blankets and IV line, Mom requested medication for to be able to sleep.
[2022-07-22] MEDS ORDERED: TPN BAG #4 IV SCH ×4 (14:30)
[2022-07-22 16:54] LABS: BACTERIA,URINE RARE /HPF (NONE SEEN); RBC,URINE 20-50 /HPF (0-3); SQUAMOUS EPITHELIAL CELL,UR FEW /HPF (NONE SEEN)
--- NOTE | 2022-07-22 17:15 | NUR ---
PICC line in progress.
[2022-07-23] VITALS (25 sets, daily range): BP systolic 93–159; BP diastolic 32–73
[2022-07-23] MEDS ORDERED: LORAZEPAM 2 MG/1 ML VIAL IV ONE
--- NOTE | 2022-07-23 02:30 | NUR ---
PT REMAINS RESTLESS. ATTEMPTS TO CLIMB OOB WRIST RESTRAINTS APLIED OEDERED.
--- NOTE | 2022-07-23 03:05 | NUR ---
EKG DONE BY RT MISSY ORELLANA NOTIFIED OF QTC OF 411, ST.OBTAINED ORDER TO ADMINISTER HALDOL 2.5 MG IV X 1 AND BENADRYL 25 MG IV TIMES 1
[2022-07-23] MEDS ORDERED: diphenhydrAMINE 50 MG/1 ML VIAL ONE (03:13)
[2022-07-23] MEDS ORDERED: HALOPERIDOL LACTATE 5 MG/1 ML VIAL ONE (03:13)
[2022-07-23] MEDS ORDERED: diphenhydrAMINE 50 MG/1 ML VIAL IV STA (03:23)
[2022-07-23] MEDS ORDERED: HALOPERIDOL LACTATE 5 MG/1 ML VIAL IV ONE (03:30)
--- NOTE | 2022-07-23 03:30 | NUR ---
Pt has no adverse reaction from Benadtyl and Haldol. Pt fell assleep Resp is regular and unlabored. O2SAT 97. Addendum: 07/23/22 at 1326 by REGISTRY [facility] RN3 RN LATE ENTRY DUE TO PRIORITY OF CARE.
[2022-07-23 06:30] LABS: CARBON DIOXIDE 26 mmol/L (21-32); CHLORIDE 114 mmol/L (98-107); CREATININE 0.6 mg/dL (0.6-1.3); GLUCOSE 118 mg/dL (74-106); HEMATOCRIT 27.9 % (36.7-47.1); MAGNESIUM 1.8 mg/dL (1.8-2.4); PHOSPHOROUS 2.4 mg/dL (2.5-4.9); POTASSIUM 3.8 mmol/L (3.5-5.1); UREA NITROGEN, BLOOD 19 mg/dL (7-18)
[2022-07-23 06:32] LABS: MEAN CORPUSCULAR HEMOGLOBIN 31.6 uug (23.8-33.4); MEAN CORPUSCULAR VOLUME 94.2 fL (73.0-96.2)
[2022-07-23 06:40] LABS: PLATELET COUNT (AUTO) 28 K/uL (152-348)
[2022-07-23] MEDS: BLOOD SUGAR DIAGNOSTIC 1 EACH STRIP VI SCH ×4 (06:43→17:12)
--- NOTE | 2022-07-23 06:45 | NUR ---
Patient is awake and alert and oriented.Patients Brother in Law and patients parent visiting. Patient verbalizes that he would like to remain full code status with Dr Alford and this RN,as witm=ness. Pt is weak in b/l hands and is unable to sign.
--- NOTE | 2022-07-23 06:56 | NUR ---
Late Entry: 2100 PTspoke with doctor family and this RN AT 2130 0n 2124.
[2022-07-23 07:05] LABS: BAND % (MANUAL) 1 % (0-10); NEUTROPHILS % (MANUAL) 84 % (42-75)
[2022-07-23 07:06] LABS: LYMPHOCYTES % (MANUAL) 5 % (20-40); METAMYELOCYTES % 1 % (0-1); MONOCYTES % (MANUAL) 9 % (2-10)
[2022-07-23] MEDS: PANTOPRAZOLE SODIUM 40 MG VIAL IV SCH ×2 (09:00→21:34)
[2022-07-23] MEDS: REMEDY ESSENTIAL ZINC PASTE 113 GM TOP SCH ×2 (09:00→21:35)
[2022-07-23] MEDS ORDERED: PANTOPRAZOLE SODIUM 40 MG VIAL ONE ×2 (09:33→20:58)
[2022-07-23] MEDS ORDERED: TPN BAG #5 IV SCH ×4 (14:30)
[2022-07-23] MEDS ORDERED: LORAZEPAM 2 MG/1 ML VIAL ONE (20:58)
[2022-07-24] VITALS (13 sets, daily range): BP systolic 95–148; BP diastolic 40–84
[2022-07-24] MEDS: BLOOD SUGAR DIAGNOSTIC 1 EACH STRIP VI SCH ×4 (00:50→18:00)
[2022-07-24] MEDS ORDERED: MORPHINE SULFATE 2 MG/1 ML DISP.SYRIN ONE (01:06)
[2022-07-24 05:29] LABS: HEMATOCRIT 27.6 % (36.7-47.1); MEAN CORPUSCULAR HEMOGLOBIN 32.2 uug (23.8-33.4); MEAN CORPUSCULAR VOLUME 95.4 fL (73.0-96.2)
[2022-07-24 05:39] LABS: PLATELET COUNT (AUTO) 28 K/uL (152-348)
[2022-07-24 05:41] LABS: ALANINE AMINOTRANSFERASE 134 U/L (16-63); ALKALINE PHOSPHATASE 133 U/L (50-136); ASPARTATE AMINOTRANSFERASE 152 U/L (15-37); BILIRUBIN,TOTAL 4.6 mg/dL (0.2-1.0); CARBON DIOXIDE 29 mmol/L (21-32); CHLORIDE 111 mmol/L (98-107); CREATININE 0.6 mg/dL (0.6-1.3); GLUCOSE 117 mg/dL (74-106); POTASSIUM 3.6 mmol/L (3.5-5.1); TOTAL PROTEIN, SERUM 4.7 g/dL (6.4-8.2); UREA NITROGEN, BLOOD 19 mg/dL (7-18)
[2022-07-24 05:51] LABS: MAGNESIUM 1.8 mg/dL (1.8-2.4)
[2022-07-24 06:02] LABS: BAND % (MANUAL) 5 % (0-10); BASOPHILS % (MANUAL) 0 % (0-2); EOSINOPHILS % (MANUAL) 0 % (0-8); LYMPHOCYTES % (MANUAL) 11 % (20-40); MONOCYTES % (MANUAL) 8 % (2-10); NEUTROPHILS % (MANUAL) 76 % (42-75)
[2022-07-24] MEDS ORDERED: PANTOPRAZOLE SODIUM 40 MG VIAL ONE ×2 (09:17→21:01)
[2022-07-24] MEDS: PANTOPRAZOLE SODIUM 40 MG VIAL IV SCH ×2 (09:21→21:45)
[2022-07-24] MEDS: REMEDY ESSENTIAL ZINC PASTE 113 GM TOP SCH ×2 (09:26→21:46)
--- NOTE | 2022-07-24 13:36 | NUR ---
Seeing by DR Orourke this morning. Doctor will order swallowing evaluation to be done also pending transfer to [facility].
[2022-07-24] MEDS: SOD FERRIC GLUC COMPLX/SUCROSE 125 MG in IV NORMAL SALINE 100 ML IV SCH (14:00)
--- NOTE | 2022-07-24 14:00 | NUR ---
[id number]--RECEIVED A/OX2. PT SEEMS MORE ALERT BUT STILL CONFUSED R/T EVENT AND PLACE. FAMILY MEMBS. SR/NO ECTOPY. PT AFEBRILE. PT SEEMS MORE APPROPRIATE AT TIMES. IV I/P VIA LEFT ARM TLC -PICC-LINE. PT HAS TPN AT 80CC/HR. PT HAS BEEN INCONT. WITH LIQ. MOLINA STOOL/MOD AMT. F/C I/P WITH 650CC MED. MOLINA U/O. BATH AND LINEN CHANGE DONE. PT WAS AGITATED AT TIMES AND KEPT PULLING LINES AND WIRES. SOFT WRIST RESTRAINTS ON. NO S/S OF GROSS GI BLDG. PT ENDORSED TO CORIE GABRIEL IN STABLE BUT GUARDED COND. TYLER FONTENOT
[2022-07-24] MEDS ORDERED: TPN BAG #6 IV SCH ×4 (14:30)
--- NOTE | 2022-07-24 20:00 | NUR ---
Pt is awakealert and mildly confused. B/L wrist restraints in place. No distress. IPN infusing as ordered,AT [facility] PICC.
--- NOTE | 2022-07-24 20:00 | NUR ---
apat request to have wrist restraints removed. pPt intructe not to remove his tubings or get OOB. Pt verbalizes understanding. Restraints removed.
--- NOTE | 2022-07-24 21:19 | NUR ---
Pt tolerates ice chip offered as perMD. pt ate 1 cup of icecips easily. O2SAT 99%. Pt ask for break=fast in the morning.
--- NOTE | 2022-07-24 22:00 | NUR ---
Restraints off. Pt ask for assistance to use the bathroom to urinate. Pt reminded that he has a catheter tocollect his urine and was not able to faythom. Reinforcement needed,
[2022-07-24] MEDS ORDERED: LORAZEPAM 2 MG/1 ML VIAL ONE (22:52)
[2022-07-24] MEDS: LORAZEPAM 2 MG/1 ML VIAL IV PRN (22:54)
--- NOTE | 2022-07-24 23:39 | NUR ---
Arivam effective.Pt is asleep. RR 16.o2sat 99.
[2022-07-25] VITALS (10 sets, daily range): BP systolic 101–141; BP diastolic 41–70
[2022-07-25 05:27] LABS: HEMATOCRIT 32.6 % (36.7-47.1); MEAN CORPUSCULAR HEMOGLOBIN 31.9 uug (23.8-33.4); MEAN CORPUSCULAR VOLUME 96.2 fL (73.0-96.2)
[2022-07-25 05:28] LABS: PLATELET COUNT (AUTO) 31 K/uL (152-348)
[2022-07-25 05:34] LABS: MAGNESIUM 1.9 mg/dL (1.8-2.4); PHOSPHOROUS 2.7 mg/dL (2.5-4.9)
[2022-07-25 05:37] LABS: CREATININE 0.7 mg/dL (0.6-1.3); POTASSIUM 3.6 mmol/L (3.5-5.1); TOTAL PROTEIN, SERUM 5.2 g/dL (6.4-8.2)
--- NOTE | 2022-07-25 07:25 | NUR ---
A call to attending report given and orders to down-grade pt. to telemetry received.
--- NOTE | 2022-07-25 07:45 | NUR ---
Spoke with supervisor brake repair requesting a telemetry bed for [facility] [place]. And at this time I was told by supervisor brake repair Breanna that they have a bed for ICU 2 Bravo who remains on uncontrolled A-fib and on amidarone drip. Proposal Consultant informed that I notified extrusion die coordinator Dr. Ramírez who stated that He will follow up with pt. on a later basis.
[2022-07-25 07:58] LABS: BAND % (MANUAL) 4 % (0-10); EOSINOPHILS % (MANUAL) 6 % (0-8); LYMPHOCYTES % (MANUAL) 9 % (20-40); METAMYELOCYTES % 1 % (0-1); MONOCYTES % (MANUAL) 9 % (2-10); MYELOCYTES % 1 % (0-0); NEUTROPHILS % (MANUAL) 70 % (42-75)
--- NOTE | 2022-07-25 08:20 | NUR ---
Received from ER/transition/ ICU - PT on SNR. L upper arm PICC with triple lumen Flushed with NS no resistance. TPN infusing as ordered. Pt on o2 @ 3lit n/c. Pt alert and oriented x 4 but forgetful at times. Pt denies any c/o pain. PT's air matress has leak on left upper portion - ordered new KCI matress to replace. F/c draining concentrated Brown urine. No medical restraint noted due to pt is alert and oriented and not pulling on his IV lines. VSS.
--- NOTE | 2022-07-25 08:24 | NUR ---
Pt. taken up to room 327 by histology supervisor. AAOx3. vitals stable. patient report given to rn. [place].
[2022-07-25] MEDS: PANTOPRAZOLE SODIUM 40 MG VIAL IV SCH ×2 (10:15→21:29)
[2022-07-25] MEDS: BLOOD SUGAR DIAGNOSTIC 1 EACH STRIP VI SCH ×4 (10:15→18:12)
[2022-07-25] MEDS: REMEDY ESSENTIAL ZINC PASTE 113 GM TOP SCH ×2 (10:16→21:32)
[2022-07-25] MEDS: SOD FERRIC GLUC COMPLX/SUCROSE 125 MG in IV NORMAL SALINE 100 ML IV SCH (14:34)
[2022-07-25] MEDS: TPN BAG #7 IV SCH ×4 (15:23)
--- NOTE | 2022-07-25 15:30 | NUR ---
Started new TPN given by Pharmacist. Second RN double checked TPN prior to hanging IV as ordered.
--- NOTE | 2022-07-25 18:30 | NUR ---
NOted BM greenish no bleeding noted. Pt is in no acute distress.
[2022-07-25] MEDS ORDERED: FAMOTIDINE. 20 MG/2 ML VIAL IV SCH (21:00)
[2022-07-26] VITALS (9 sets, daily range): BP systolic 98–111; BP diastolic 43–69
[2022-07-26] MEDS: BLOOD SUGAR DIAGNOSTIC 1 EACH STRIP VI SCH ×3 (00:09→11:47)
--- NOTE | 2022-07-26 06:43 | NUR ---
Patient slept well, no noted signs of pain/discomfort, no acute distress noted. BABAK PICC line intact. FC intact with light brown urine output. Remains NPO. Call light within easy reach.
[2022-07-26 07:13] LABS: HEMATOCRIT 28.8 % (36.7-47.1); MEAN CORPUSCULAR HEMOGLOBIN 32.5 uug (23.8-33.4); MEAN CORPUSCULAR VOLUME 95.3 fL (73.0-96.2)
[2022-07-26 07:27] LABS: CARBON DIOXIDE 26 mmol/L (21-32); CHLORIDE 106 mmol/L (98-107); CREATININE 0.6 mg/dL (0.6-1.3); GLUCOSE 104 mg/dL (74-106); MAGNESIUM 1.7 mg/dL (1.8-2.4); PHOSPHOROUS 3.4 mg/dL (2.5-4.9); POTASSIUM 3.9 mmol/L (3.5-5.1); UREA NITROGEN, BLOOD 16 mg/dL (7-18)
[2022-07-26] MEDS: PANTOPRAZOLE SODIUM 40 MG VIAL IV SCH ×2 (09:14→20:59)
[2022-07-26] MEDS: REMEDY ESSENTIAL ZINC PASTE 113 GM TOP SCH ×2 (09:15→21:27)
[2022-07-26 10:26] LABS: PLATELET COUNT (AUTO) 28 K/uL (152-348)
[2022-07-26] MEDS ORDERED: WEAN OF TPN 1 EA EACH IV PRN (13:00)
[2022-07-26] MEDS ORDERED: MAGNESIUM OXIDE 400 MG TABLET PO ONE (13:15)
[2022-07-26] MEDS: SOD FERRIC GLUC COMPLX/SUCROSE 125 MG in IV NORMAL SALINE 100 ML IV SCH (13:31)
[2022-07-26] MEDS ORDERED: PHYTONADIONE 10 MG/1 ML AMPUL SQ ONE (14:00)
[2022-07-26] MEDS: TPN BAG #7 IV SCH ×4 (14:30)
[2022-07-26] MEDS ORDERED: TPN BAG #8 IV SCH ×7 (14:30)
--- NOTE | 2022-07-26 17:51 | NUR ---
i unit platelets given per md orders no ar noted
[2022-07-26 18:15] LABS: NEUTROPHILS % (MANUAL) 0 % (42-75)
[2022-07-27] VITALS (13 sets, daily range): BP systolic 96–114; BP diastolic 42–68
--- NOTE | 2022-07-27 01:10 | NUR ---
Transfused platelet 1 unit, no adverse reaction noted. No acute distress, denies chest pain.
--- NOTE | 2022-07-27 03:23 | NUR ---
Patient awake alert and oriented x 4, denies chest pain/discomfort. Transfusion completed, no adverse reaction. VS WNL.
--- NOTE | 2022-07-27 07:15 | NUR ---
Recieved Pt. Pt is A&O x 3. Pt recieving NC @ 3L. Was notified of thoracentesis. Telemetry showcased HR ranging from 85-95%. Will continue to monitor.
[2022-07-27 07:21] LABS: CARBON DIOXIDE 24 mmol/L (21-32); CHLORIDE 103 mmol/L (98-107); CREATININE 0.6 mg/dL (0.6-1.3); GLUCOSE 71 mg/dL (74-106); MAGNESIUM 1.7 mg/dL (1.8-2.4); PHOSPHOROUS 3.4 mg/dL (2.5-4.9); POTASSIUM 4.3 mmol/L (3.5-5.1); UREA NITROGEN, BLOOD 13 mg/dL (7-18)
[2022-07-27 08:13] LABS: HEMATOCRIT 34.5 % (36.7-47.1); MEAN CORPUSCULAR HEMOGLOBIN 31.8 uug (23.8-33.4)
[2022-07-27 08:14] LABS: PLATELET COUNT (AUTO) 38 K/uL (152-348)
[2022-07-27] MEDS ORDERED: MAGNESIUM SULFATE/D5W 100 ML IV SCH (08:15)
[2022-07-27] MEDS: LACTULOSE 20 G/30 ML LIQUID UDC PO SCH ×2 (09:17→20:37)
[2022-07-27] MEDS: REMEDY ESSENTIAL ZINC PASTE 113 GM TOP SCH ×2 (09:17→20:37)
--- NOTE | 2022-07-27 12:00 | NUR ---
Pt is A&Ox3. Removed Pt's Aldridge catheter at approximately 0930. Pt gaining increasing width in regard to torso due to built up fluid. Pt still on NC @ 3L. Pt's HR range from 85-100 bpm. Will continue to monitor.
[2022-07-27] MEDS: PROTEIN SUPPLEMENT (PROSTAT) 30 ML LIQUID PO SCH (14:53)
[2022-07-27] MEDS: GLUCERNA SHAKE 237 ML CAN PO SCH ×2 (14:53→17:13)
--- NOTE | 2022-07-27 18:13 | NUR ---
Noted that Pt might receive platelet transfusion during night baker. Subject to change. Pt was able to successfully void. Pt still on NC @ 3L. HR ranging from 85-96%. Will continue to monitor.
[2022-07-28] VITALS (8 sets, daily range): BP systolic 106–127; BP diastolic 43–62
--- NOTE | 2022-07-28 00:36 | NUR ---
@ 2200 Patient received in bed, AOX4, no sob /on O2 3lpm via NC / O2 sat= 100%, patient refused of air mattress and called Dr for patient c/o back pain d/t air mattress and D/C air mattress. @ 2259 platelet=38 so platelet 1unit transfusion as ordered. @ 0100 asleep in bed, quiet,
[2022-07-28] MEDS: PANTOPRAZOLE SODIUM 40 MG TABLET.DR PO SCH (06:04)
[2022-07-28] MEDS: LACTULOSE 20 G/30 ML LIQUID UDC PO SCH ×2 (08:56→20:54)
[2022-07-28] MEDS: GLUCERNA SHAKE 237 ML CAN PO SCH ×2 (08:56→17:00)
[2022-07-28] MEDS: PROTEIN SUPPLEMENT (PROSTAT) 30 ML LIQUID PO SCH (08:56)
[2022-07-28] MEDS: REMEDY ESSENTIAL ZINC PASTE 113 GM TOP SCH ×2 (08:56→21:00)
--- NOTE | 2022-07-28 09:30 | NUR ---
Pt received awake, calm, A/Ox 4. c/o pain in his lung/chest area, aware of upcoming procedure. No distress at this time. Picc line is intact, O2 at 3lpm. vs stable
--- NOTE | 2022-07-28 11:29 | NUR ---
Social work consult was requested for a patient on [facility] for substance abuse resources. Patient is 41-year-old male admitted to the hospital for GI bleed. Patient is alert and oriented X4. Patients sister, Uma was at bedside during the assessment. Patient presents with anxious mood and congruent affect. Patient states his primary personal assistant is his brother, Christopher Rodriguez ([phone]) who lives with the patient and their parents at [address] [address] in a one-story house. Patient states that he is currently unemployed, not driving, and does not have any medical equipment at home. Patient states that he has a history of alcohol abuse. SW provided the patient with substance abuse resources for resources to [address] [place] [id number] [facility], [place] [address] ([phone]), [facility] [address] [facility] [address] ([phone]), and [address] [address] ([phone]). SW also provided the number for [facility] ([phone]). The patient was appreciative of the resources and appears motivated for treatment. Patient states he went to [facility] 4 years ago and is open to going back for outpatient treatment. Patient states he will make an appointment with the information provided. SW provided emotional support, validation, and spoke about coping strategies. Patient denies history of psychiatric diagnosis. Patient denies suicidal or homicidal ideation. Patient states his sister, Uma or brother, Christopher, can pick him up at discharge and bring him home to [address] [place] [address].
[2022-07-28 12:05] LABS: HEMATOCRIT 35.4 % (36.7-47.1); MEAN CORPUSCULAR HEMOGLOBIN 31.5 uug (23.8-33.4); MEAN CORPUSCULAR VOLUME 98.5 fL (73.0-96.2)
[2022-07-28 13:06] LABS: PLATELET COUNT (AUTO) 39 K/uL (152-348)
[2022-07-28 13:29] LABS: NEUTROPHILS % (MANUAL) 0 % (42-75)
--- NOTE | 2022-07-28 14:30 | NUR ---
FFP 2 units infusion started before thoracenteses, vs stable, no signs of adverse reaction. Thoracenteses done, 1950 cc of fluid removed and was sent to lab. Pt is resting in bed.
--- NOTE | 2022-07-28 19:30 | NUR ---
Received patient sitting on the side of the bed talking with their family. AAOx4. Ambulatory with standby assist. SR on tele monitor, HR 85. On 3L of O2, with no signs of distress noted at this time. No complaints of pain noted at this time. SLIME PICC patent and intact. Dressing is clean and dry. Plan of care continues. Safety and comfort measures enforced.
[2022-07-29] VITALS: BP 110/60
[2022-07-29 04:00] VITALS: BP 102/55
--- NOTE | 2022-07-29 06:50 | NUR ---
Patient rested comfortably throughout the night. SR on tele monitor. HR 90 .No signs of distress noted at this time. Needs were attended to and met. Safety and comfort measures maintained.
[2022-07-29 07:03] LABS: BILIRUBIN,TOTAL 6.5 mg/dL (0.2-1.0); CREATININE 0.7 mg/dL (0.6-1.3); MAGNESIUM 1.6 mg/dL (1.8-2.4); POTASSIUM 3.5 mmol/L (3.5-5.1)
[2022-07-29] MEDS: PANTOPRAZOLE SODIUM 40 MG TABLET.DR PO SCH (07:03)
[2022-07-29 07:27] LABS: HEMATOCRIT 28.5 % (36.7-47.1); MEAN CORPUSCULAR HEMOGLOBIN 33.4 uug (23.8-33.4); MEAN CORPUSCULAR VOLUME 97.2 fL (73.0-96.2)
[2022-07-29] MEDS ORDERED: POTASSIUM CHLORIDE 20 MEQ TAB.PRT.SR PO ONE (09:00)
[2022-07-29] MEDS ORDERED: MAGNESIUM OXIDE 400 MG TABLET PO ONE (09:00)
[2022-07-29] MEDS: LACTULOSE 20 G/30 ML LIQUID UDC PO SCH (09:27)
[2022-07-29] MEDS: REMEDY ESSENTIAL ZINC PASTE 113 GM TOP SCH (09:27)
[2022-07-29] MEDS: PROTEIN SUPPLEMENT (PROSTAT) 30 ML LIQUID PO SCH (09:27)
[2022-07-29] MEDS: GLUCERNA SHAKE 237 ML CAN PO SCH ×2 (09:28→17:52)
[2022-07-29 11:23] VITALS: BP 124/67
[2022-07-29 14:18] LABS: PLATELET COUNT (AUTO) 38 K/uL (152-348)
[2022-07-29 16:07] VITALS: BP 110/60
[2022-07-29] MEDS ORDERED: PANT40TA49 PO (18:14)
[2022-07-29] MEDS ORDERED: NUT.237L36 PO (18:14)
[2022-07-29] MEDS ORDERED: PROT30LI PO (18:14)
[2022-07-29] MEDS ORDERED: LACT10SO7 PO (18:14)
[2022-07-29] MEDS ORDERED: MULT-594 PO (18:15)
== END 2022-07-29 19:00 | disposition home health service (06) | DRG 720 ==
LOC: EDSEX 14:25 → ER 14:25 → TRANSITION 18:40 → TELE3 07-25 08:15
PROVIDERS: ADMIT Internal Medicine; ATTEND Internal Medicine
PROC: 02HV33Z Insertion of Infusion Device into Superior Vena Cava, Percutaneous Approach (ICD-10-PCS; principal; 2022-07-12)
PROC: B548ZZA Ultrasonography of Superior Vena Cava, Guidance (ICD-10-PCS; principal; 2022-07-12)
PROC: 30243N1 Transfusion of Nonautologous Red Blood Cells into Central Vein, Percutaneous Approach (ICD-10-PCS; principal; 2022-07-12)
PROC: 30243K1 Transfusion of Nonautologous Frozen Plasma into Central Vein, Percutaneous Approach (ICD-10-PCS; principal; 2022-07-12)
PROC: 5A1955Z Respiratory Ventilation, Greater than 96 Consecutive Hours (ICD-10-PCS; 2022-07-13)
PROC: 06L38CZ Occlusion of Esophageal Vein with Extraluminal Device, Via Natural or Artificial Opening Endoscopic (ICD-10-PCS; 2022-07-13)
PROC: 0BH17EZ Insertion of Endotracheal Airway into Trachea, Via Natural or Artificial Opening (ICD-10-PCS; 2022-07-13)
PROC: 30233M1 Transfusion of Nonautologous Plasma Cryoprecipitate into Peripheral Vein, Percutaneous Approach (ICD-10-PCS; 2022-07-17)
PROC: 0W993ZZ Drainage of Right Pleural Cavity, Percutaneous Approach (ICD-10-PCS; 2022-07-20)
PROC: 30233R1 Transfusion of Nonautologous Platelets into Peripheral Vein, Percutaneous Approach (ICD-10-PCS; 2022-07-27)
PROC: 0W993ZZ Drainage of Right Pleural Cavity, Percutaneous Approach (ICD-10-PCS; 2022-07-28)
DX: A41.9 Sepsis, unspecified organism (principal); K72.00 Acute and subacute hepatic failure without coma; J96.01 Acute respiratory failure with hypoxia; R65.21 Severe sepsis with septic shock; E43 Unspecified severe protein-calorie malnutrition; D61.818 Other pancytopenia; G92.8 Other toxic encephalopathy; K85.20 Alcohol induced acute pancreatitis without necrosis or infection; I85.11 Secondary esophageal varices with bleeding; E87.0 Hyperosmolality and hypernatremia; J90 Pleural effusion, not elsewhere classified; E87.20 Acidosis, unspecified; K70.31 Alcoholic cirrhosis of liver with ascites; A04.9 Bacterial intestinal infection, unspecified; F10.20 Alcohol dependence, uncomplicated; D62 Acute posthemorrhagic anemia; Z68.28 Body mass index [BMI] 28.0-28.9, adult; E88.09 Other disorders of plasma-protein metabolism, not elsewhere classified; J98.11 Atelectasis; Z20.822 Contact with and (suspected) exposure to COVID-19; Z22.322 Carrier or suspected carrier of Methicillin resistant Staphylococcus aureus; R55 Syncope and collapse; R74.01 Elevation of levels of liver transaminase levels; K86.0 Alcohol-induced chronic pancreatitis; K42.9 Umbilical hernia without obstruction or gangrene; D68.4 Acquired coagulation factor deficiency; K46.9 Unspecified abdominal hernia without obstruction or gangrene; D69.6 Thrombocytopenia, unspecified; I24.9 Acute ischemic heart disease, unspecified; K43.9 Ventral hernia without obstruction or gangrene
CPT/HCPCS: 32555; 36415; 36569; 36600; 70030-TC; 71045; 82746; 82784; 83550; 83605; 83615; 83690; 83735; 83986; 84100; 84155; 84165; 84443; 84478; 84484; 85025; 85049; 85610; 85730; 86038; 86140; 86334; 86430; 86705; 86706; 86803; 86850; 86900; 86901; 86920; 87040; 87340; 87806; 93005; 94002; 94003; A4663; C9113; G0378; J0330; J0696; J1100; J1200; J1630; J1815; J2060; J2185; J2250; J2270; J2354; J2405; J2543; J2765; J2916; J3010; J3370; J3430; J3475; J3480; J3490; J7040; J7042; J7050; J7060; P9012; P9016; P9035; P9059; Q0163